=== PATIENT | female | born 1980 | race Caucasian/White ===

== ENCOUNTER 2019-02-23 08:48 | Day surgery (SDC) | payer BC ==
[~2019-02-23 08:48] MED LIST: CEFAZOLIN 2 Gram 2 GM/50 ML BAG IVPB ONE
[2019-02-23] MEDS ORDERED: LIDOCAINE 2% MDV (20MG/ML) 20ML VIAL IV ONE (08:49)
[2019-02-23] MEDS ORDERED: DEXAMETHASONE 4 MG/ML 1ML VIAL IVP ONE (08:49)
[2019-02-23] MEDS ORDERED: MORPHINE SULFATE PF 10MG/10ML *10ML VIAL IV ONE (08:49)
[2019-02-23] MEDS ORDERED: BUPIVACAINE LIPOSOME/PF 133MG/10ML VIAL IV ONE (08:49)
[2019-02-23] MEDS ORDERED: BUPIVACAINE 0.5% (5MG/ML) PF 30ML VIAL IVP ONE (08:49)
[2019-02-23] MEDS ORDERED: KETAMINE HCL 100MG/1ML VIAL INJ ONE (08:49)
[2019-02-23] MEDS ORDERED: KETOROLAC 30 MG/ML VIAL IVP ONE (08:49)
[2019-02-23] MEDS ORDERED: PROPOFOL 10 MG/ML VIAL IV ONE (08:49)
[2019-02-23] MEDS ORDERED: MIDAZOLAM HCL 2MG/2ML VIAL IV ONE (08:49)
[2019-02-23] MEDS ORDERED: RINGERS SOLUTION,LACTATED 1,000 ML IV ONE ×2 (09:30→11:45)
[2019-02-23] MEDS ORDERED: MORPHINE SULFATE 5 MG/ML VIAL IM ONE (11:58)
[2019-02-23] MEDS ORDERED: METHYLPREDNISOLONE 40MG/VIAL IU ONE (11:58)
[2019-02-23] MEDS ORDERED: BUPIVACAINE 0.5% W/EPI MPF 30 ML VIAL SQ ONE (11:58)
--- NOTE | 2019-02-24 08:51 | Operative Note ---
DATE OF SURGERY: 02/23/2019 PREOPERATIVE DIAGNOSIS: Left shoulder impingement. POSTOPERATIVE DIAGNOSES: 1. Complex anterior glenohumeral labral tear. 2. Profound external impingement left shoulder. 3. Arthrosis left distal clavicle. OPERATION: 1. Left shoulder arthroscopy with interarticular debridement. 2. Left shoulder open acromioplasty, CA ligament resection, subacromial bursectomy. 3. Left shoulder distal clavicle resection. STAFF SURGEON: Alfonzo Allan MD ANESTHESIA: Block with sedation. PREPARATION: Chloraprep. INDIVIDUAL CONSIDERATIONS: None. PROCEDURE: The patient was taken to the operating room, placed supine on the operating room table. He had a successful induction of a scalene block and then sedation. She was then placed in a semi-seated beach chair position. Her left arm and shoulder were prepped and draped in the usual fashion. The patient had an examination under anesthesia which showed full passive motion and no instability. She had a posterior portal identified for arthroscopy. Skin was infiltrated with 0.5% Marcaine with epinephrine prior. An 18-gauge spinal needle was placed in the joint, and the joint was inflated with normal saline with a 60-mL syringe. A stab wound was made, and a blunt-tipped trocar for the scope was placed inside the joint. The joint was inflated with normal saline. An anterior accessory portal was then made just inferior to the intact long head of the biceps tendon in a retrograde fashion with a Wissinger , and the joint was irrigated out. The patient had an anterior labral tear which was debrided. The remainder of it looked good. The undersurface of the rotator cuff looked contused but was intact. Long head was intact. Glenohumeral joint was normal. Subscap was normal. No loose bodies were seen in the pouch or inferiorly. After irrigation, portals were closed with collette. The patient had an anterior approach to the subacromial space and distal clavicle. Skin was again infiltrated with 0.5% Marcaine with epinephrine prior. Sharp dissection carried down through skin and subcutaneous tissues. Small veins were coagulated with a Bovie. An anterior deltoid interval was developed. Care was taken not to split the deltoid more than about 4 cm distal to the anterior tip of the acromion to prevent injury to the axillary nerve. Once in the subacromial space, it was very tight. There was an anterior spur on the acromion, spurs at the AC joint, and a thick bursa. The deltoid was then taken subperiosteally off the anterior aspect of the acromion, over the top of the intact CA ligament, and off the anterior aspect of the degenerated distal clavicle. CA ligament was resected with a Bovie. Distal clavicle was resected with an oscillating saw taking about 5 mm given her diminutive stature. An anterior acromioplasty was performed taking about 5-6 mm tapering towards posteromedially to include the spurs at the AC joint. The undersurface was then smoothed with a rasp. A very thick bursa was debrided out. I now had a good look at the rotator cuff. It looked contused but otherwise intact. I put it through a full range of motion to ensure no further impingement. After irrigation, the deltoid was reattached to the remaining acromion with multiple interrupted #2 Vicryl going directly through the bony acromion. The anterior deltoid interval was then closed with running 0 Vicryl. The periosteal cuff of distal clavicle was closed with a running #2 Vicryl. Subcu was closed with 2-0 plus Vicryl and skin was closed with running 3-0 quill reinforced with Steri-Strips. An 18-gauge spinal needle was placed in the subacromial space and it was infiltrated with 10 mL of 0.5% Marcaine with epinephrine along with 40 mg of Depo-Medrol and 10 mg of morphine. A sterile bulky compressive dressing and sling were applied. The patient tolerated the procedure well. Needle and sponge counts were correct. Estimated blood loss was minimal. She was taken back to recovery in good condition. There were no complications. YADI
== END 2019-02-23 13:21 | disposition home or self-care (01) ==
LOC: SUR 08:48
PROVIDERS: ATTEND Orthopaedic Surgery
DX: S43.432A Superior glenoid labrum lesion of left shoulder, initial encounter (principal); M19.012 Primary osteoarthritis, left shoulder; K21.9 Gastro-esophageal reflux disease without esophagitis; E03.9 Hypothyroidism, unspecified
CPT/HCPCS: 29822; 23415; 23120; 01630; 64415; 81025; J1885; J0690; C9290; J3490; 76942; J1030; J7120